=== PATIENT | female | born 1980 | race African-American/Black ===

== ENCOUNTER 2020-05-11 15:00 | Emergency (ER) | payer OTHER, MEDICAID ==
--- NOTE | 2020-05-11 15:36 | Emergency Department Report ---
Blank Doc - Documentation Documentation: 39-year-old female that presents with abdominal pain. Stated had a mischarge 6 days ago. Denies any vaginal bleeding Translation phone line used for interruption. This initial assessment/diagnostic orders/clinical plan/treatment(s) is/are subject to change based on patient's health status, clinical progression and re- assessment by fellow clinical providers in the ED. Further treatment and workup at subsequent clinical providers discretion. Patient/guardians urged not to elope from the ED as their condition may be serious if not clinically assessed and managed. Initial orders include: 1- Patient sent to [facility] for further evaluation and treatment 2- labs 3- UA
[2020-05-11 17:19] LABS: Basophils # (Auto) 0.1 K/mm3 (0.0-0.1); Basophils % (Auto) 0.8 % (0.0-1.8); Eosinophils # (Auto) 0.2 K/mm3 (0.0-0.4); Eosinophils % (Auto) 2.8 % (0.0-4.3); Hematocrit 38.1 % (30.3-42.9); Hemoglobin 12.9 gm/dl (10.1-14.3); Lymphocytes # (Auto) 1.6 K/mm3 (1.2-5.4); Mean Corpuscular HGB Conc 34 % (30-34); Mean Corpuscular Volume 99 fl (79-97); Monocytes # (Auto) 0.5 K/mm3 (0.0-0.8); Monocytes % (Auto) 7.4 % (0.0-7.3); Platelet Count 274 K/mm3 (140-440); Red Blood Count 3.84 M/mm3 (3.65-5.03); Red Cell Distribution Width 11.9 % (13.2-15.2)
[2020-05-11 17:32] LABS: Alanine Aminotransferase 30 units/L (7-56); Albumin 3.9 g/dL (3.9-5); BUN/Creatinine Ratio 18; Blood Urea Nitrogen 14 mg/dL (7-17); Hemolysis Index 12
[2020-05-11 20:13] LABS: Bilirubin,Urine NEG (Negative); Blood,Urine NEG (Negative); Color,Urine Straw (Yellow); Mucus,Urine FEW /HPF; Protein,Urine <15 mg/dL mg/dL (Negative); RBC,Urine < 1.0 /HPF (0.0-6.0); Urobilinogen,Urine < 2.0 mg/dL (<2.0)
[2020-05-11] MEDS ORDERED: KETOROLAC 30 MG/1 ML INJ IV ONE (20:24)
[2020-05-11] MEDS ORDERED: ACETAMINOPHEN 500 MG TAB PO ONE (20:25)
[2020-05-11] MEDS ORDERED: KETOROLAC 30 MG/1 ML INJ ONE (20:29)
--- NOTE | 2020-05-11 22:06 | Ultrasound Report ---
PELVIC ULTRASOUND INDICATION: Pelvic pain, history of recent spontaneous COMPARISON: None TECHNIQUE: Transabdominal FINDINGS: Retroverted uterus is seen measuring 8.8 x 4.9 x 7.6 cm. Endometrial stripe is somewhat ill -defined due to low detail but appears to measure 7 mm. No obvious uterine abnormalities are seen bes t can be determined. Right ovary measures 4 cm in length and shows no focal lesions. Left ovary measures 4.4 cm in length and shows no focal lesions. Flow is seen in both ovaries. No free fluid is seen. IMPRESSION: Somewhat limited study due to low detail but no obvious abnormalities are seen Signer Name: Champ Kay MD Signed: 05/11/2020 10:01 PM Workstation Name: [id number]
--- NOTE | 2020-05-11 23:30 | Emergency Department Report ---
ED Female HPI - General Chief complaint: Abdominal Pain Stated complaint: PREG Time Seen by Provider: 05/11/20 15:36 Source: patient Mode of arrival: Ambulatory Limitations: Language Barrier - History of Present Illness Initial comments: Patient is a 39-year-old [place] female with no past medical history and who is a A1, and a 6 days s/p complete miscarriage 6 days ago and who presents to the ED with complaint of persistent pelvic pain, intermittent vaginal bleeding and generalized weakness for the last 6 days. Patient also states that she would like to be evaluated to determine if all products of conception were expelled during the miscarriage 6 days ago. Patient denies vaginal discharge, dysuria, urinary frequency and urgency, low back pain, fever, chills, cough, chest pain, shortness of breath, nausea and vomiting or diarrhea, sore throat, headache or back pain. MD Complaint: vaginal bleeding, pelvic pain -: Sudden, days(s) (6) Location: suprapubic Radiation: non-radiating Severity: moderate Severity scale (0 -10): 4 Quality: cramping, dull Consistency: intermittent Improves with: none Worsens with: none Are you Now?: No (6 days s/p complete miscarriage) Associated Symptoms: denies other symptoms, vaginal bleeding, abdominal pain, loss of appetite. denies: vaginal discharge, nausea/vomiting, fever/chills, headaches, dysuria, hematuria, rash, seizure, shortness of breath, syncope, weakness, other - Related Data Sexually active: Yes : 2 Para: 1 A: 1 Previous Rx's Medication Instructions Recorded Last Taken Type Ibuprofen [Motrin] 800 mg PO Q8HR PRN #30 tablet 05/11/20 Unknown Rx Allergies Allergy/AdvReac Type Severity Reaction Status Date / Time No Known Allergies Allergy Unverified 05/11/20 15:20 ED Review of Systems ROS: Stated complaint: PREG Other details as noted in HPI Constitutional: denies: chills, fever Eyes: denies: eye pain, eye discharge, vision change ENT: denies: ear pain, throat pain Respiratory: denies: cough, shortness of breath, wheezing Cardiovascular: denies: chest pain, palpitations Endocrine: no symptoms reported Gastrointestinal: abdominal pain (suprapubic). denies: nausea, diarrhea Genitourinary: abnormal menses (vaginal bleeding). denies: urgency, dysuria, discharge Musculoskeletal: denies: back pain, joint swelling, arthralgia Skin: denies: rash, lesions Neurological: denies: headache, weakness, paresthesias Psychiatric: denies: anxiety, depression Hematological/Lymphatic: denies: easy bleeding, easy bruising ED Past Medical Hx - Past Medical History Previous Medical History?: No - Surgical History Past Surgical History?: No - Social History Smoking Status: Never Smoker Substance Use Type: None - Medications Home Medications: Home Medications Medication Instructions Recorded Confirmed Last Taken Type Ibuprofen [Motrin] 800 mg PO Q8HR PRN #30 tablet 05/11/20 Unknown Rx ED Physical Exam - General Limitations: Language Barrier General appearance: alert, in no apparent distress - Head Head exam: Present: atraumatic, normocephalic, normal inspection - Eye Eye exam: Present: normal appearance, PERRL, EOMI Pupils: Present: normal accommodation - ENT ENT exam: Present: normal exam, normal orophraynx, mucous membranes moist, TM's normal bilaterally, normal external ear exam - Neck Neck exam: Present: normal inspection, full ROM - Respiratory Respiratory exam: Present: normal lung sounds bilaterally. Absent: respiratory distress, wheezes, rales, rhonchi, chest wall tenderness, accessory muscle use, decreased breath sounds - Cardiovascular Cardiovascular Exam: Present: regular rate, normal rhythm, normal heart sounds. Absent: systolic murmur, diastolic murmur, rubs, gallop - GI/Abdominal GI/Abdominal exam: Present: soft, tenderness (Palpable mild suprapubic tendern ess), normal bowel sounds. Absent: guarding, rebound, hyperactive bowel sounds, hypoactive bowel sounds, organomegaly - Bi-manual exam: Present: other (Pelvic exam deferred, patient declined) - Extremities Exam Extremities exam: Present: normal inspection, full ROM, normal capillary refill - Back Exam Back exam: Present: normal inspection, full ROM. Absent: tenderness, CVA te nderness (R), CVA tenderness (L), muscle spasm, paraspinal tenderness, vertebral tenderness - Neurological Exam Neurological exam: Present: alert, oriented X3, CN II-XII intact, normal gait, reflexes normal - Psychiatric Psychiatric exam: Present: normal affect, normal mood - Skin Skin exam: Present: warm, dry, intact, normal color. Absent: rash ED Course Vital Signs 05/11/20 05/11/20 15:20 20:33 Temperature 98.8 F Pulse Rate 66 Respiratory 18 18 Rate Blood Pressure 152/68 ED Medical Decision Making - Lab Data Result diagrams: 05/11/20 17:00 05/11/20 17:00 - Radiology Data Radiology results: report reviewed, image reviewed Findings [facility] [address] [place] [address] Ultrasound Report Signed Patient: ELLI CHAVEZ MR#: [id number] : 1980 Acct:[id number] Age/Sex: 39 / F ADM Date: 05/11/20 Loc: ED Attending Dr: Ordering Physician: QUIQUE AZUL Date of Service: 05/11/20 Procedure(s): US pelvic complete Accession Number(s): [id number] cc: QUIQUE AZUL PELVIC ULTRASOUND INDICATION: Pelvic pain, history of recent spontaneous COMPARISON: None TECHNIQUE: Transabdominal FINDINGS: Retroverted uterus is seen measuring 8.8 x 4.9 x 7.6 cm. Endometrial stripe is somewhat ill-defined due to low detail but appears to measure 7 mm. No obvious uterine abnormalities are seen best can be determined. Right ovary measures 4 cm in length and shows no focal lesions. Left ovary measures 4.4 cm in length and shows no focal lesions. Flow is seen in both ovaries. No free fluid is seen. IMPRESSION: Somewhat limited study due to low detail but no obvious abnormalities are seen Signer Name: Champ Kay MD Signed: 05/11/2020 10:01 PM Workstation Name: [id number] Transcribed By: Dictated By: Champ Kay MD Electronically Authenticated By: Champ Kay MD Signed Date/Time: 05/11/202200 DD/ 99 TD/TT: - Medical Decision Making This is a 39-year-old [place] female with no past medical history and who is a A1, and a 6 days s/p complete miscarriage 6 days ago and who presents to the ED with complaint of persistent pelvic pain, intermittent vaginal bleeding and generalized weakness for the last 6 days. Patient also states that she would like to be evaluated to determine if all products of conception were expelled during the miscarriage 6 days ago. In the ED, patient is alert and oriented x3 and is not in any distress with normal vital signs. Lab test results were reviewed and are all nonactionable except for hCG quant of 980. The patient was treated for pain in the ED and complete pelvic ultrasound showed no acute abnormalities and no IUP. On reevaluation, patient's pain is well controlled medications. Patient was discharged home on pain medications and advised to continue taking pain medication as needed, drink plenty of fluids and follow-up with your [facility] physician in 5 to 7 days for reevaluation or return to the ED immediately if symptoms get worse. - Differential Diagnosis Complete miscarriage; UTI; ovarian cyst; dysmenorrhea; fibroids Critical care attestation.: If time is entered above; I have spent that time in minutes in the direct care of this critically ill patient, excluding procedure time. ED Disposition Clinical Impression: Complete miscarriage, Vaginal bleeding, Dysmenorrhea Disposition: TO HOME OR SELFCARE Is pt being admited?: No Does the pt Need Aspirin: No Condition: Stable Instructions: Abdominal Pain (ED), Spontaneous Miscarriage (ED) Additional Instructions: All lab test results are unremarkable with no abnormalities. The hCG quant is low. The pelvic ultrasound showed no intrauterine , and no other acute abnormalities. Therefore maintain a complete pelvic rest, take medication with food, drink plenty of fluids and follow-up with your [facility] physician in 5 to 7 days for reevaluation. Return to the ED immediately if symptoms get worse. Prescriptions: Ibuprofen [Motrin] 800 mg PO Q8HR PRN #30 tablet PRN Reason: Pain , Severe (7-10) Referrals: ABEL FAN MD [Primary Care Provider] - 3-5 Days Time of Disposition: 23:33 Print Language: S[place]
[2020-05-12 01:55] VITALS: BP 140/64
== END 2020-05-11 23:50 | disposition home or self-care (01) ==
LOC: ED 15:00
DX: O03.9 Complete or unspecified spontaneous abortion without complication (principal); Z3A.01 Less than 8 weeks gestation of pregnancy
CPT/HCPCS: 36415; 76856; 80053; 81001; 83690; 84702; 85025; J1885